=== PATIENT | male | born 1990 | race Hispanic/Latino ===

== ENCOUNTER 2023-11-17 16:21 | Emergency (ER) | payer OTHER ==
[~2023-11-17] VITALS: Ht 170.2 cm; Wt 88.5 kg
[2023-11-17] MEDS ORDERED: KETOROLAC 30MG VIAL (30MG/ML) IVP ONE (17:00)
[2023-11-17] MEDS ORDERED: FAMOTIDINE 20MG VIAL IV ONE (17:00)
[2023-11-17] MEDS ORDERED: METOCLOPRAMIDE 10 MG/2 ML VIAL IVP ONE (17:00)
[2023-11-17] MEDS ORDERED: LABETALOL 20MG VIAL IV ONE (17:00)
[2023-11-17 17:22] LABS: BASOPHILS # (AUTO) 0.17 K/uL (0.00-0.20); BASOPHILS % (AUTO) 2.7 % (0.0-5.0); EOSINOPHILS # (AUTO) 0.38 K/uL (0.00-0.70); HEMATOCRIT 48.2 % (42-54); IMMATURE GRANULOCYTE ABSOLUTE 0.02 K/uL (0-1); LYMPHOCYTES # (AUTO) 1.7 K/uL (1.0-4.8); LYMPHOCYTES % (AUTO) 26.7 % (21.0-51.0); MEAN CORPUSCULAR HEMOGLOBIN 30.7 pg (27.0-33.0); MEAN CORPUSCULAR HGB CONC 34.2 g/dL (32.0-36.0); MEAN CORPUSCULAR VOLUME 89.8 fL (79-99); MONOCYTES # (AUTO) 0.4 K/uL (0.1-1.0); MONOCYTES % (AUTO) 6.6 % (3.0-13.0); NEUTROPHILS # (AUTO) 3.7 K/uL (1.8-7.7); NEUTROPHILS % (AUTO) 57.7 % (40.0-77.0); PLATELET COUNT (AUTO) 310 K/uL (130-400); RED BLOOD CELL COUNT(AUTO) 5.37 MIL/uL (4.50-6.20); RED CELL DISTRIBUTION WIDTH 12.6 % (11.0-15.5); WHITE BLOOD COUNT (AUTO) 6.4 K/uL (4.8-10.8)
[2023-11-17 17:41] LABS: CREATININE 1.2 mg/dL (0.5-1.5); POTASSIUM 3.9 mmol/L (3.5-5.1)
[2023-11-17 17:54] LABS: MAGNESIUM 2.1 mg/dL (1.80-2.40); THYROID STIMULATING HORMONE 1.22 uIU/mL (0.36-3.74)
[2023-11-17 18:13] LABS: APPEARANCE,URINE TURBID (CLEAR); BILIRUBIN,URINE NEGATIVE (NEGATIVE); COLOR,URINE YELLOW (YELLOW); GLUCOSE, URINE (UA) NEGATIVE (NEGATIVE); KETONES,URINE NEGATIVE (NEGATIVE); LEUKOCYTE ESTERASE ,URINE NEGATIVE Leu/uL (NEGATIVE); NITRATE,URINE NEGATIVE (NEGATIVE); OCCULT BLOOD,URINE NEGATIVE (NEGATIVE); PROTEIN,URINE 10 mg/dL (NEGATIVE); UROBILINOGEN,URINE 0.2 mg/dL (0.2-1.0)
[2023-11-17 18:15] LABS: ADD UA MICROSCOPIC YES
[2023-11-17 18:37] LABS: BACTERIA,URINE RARE /HPF (None Seen); MUCUS,URINE RARE LPF (None Seen); WBC,URINE 0-1 /HPF (0-1)
[2023-11-17] MEDS ORDERED: HYDR-3420 PO (18:52)
[2023-11-17 19:04] VITALS: BP 133/86; PULSE 78; RESP 18; O2SAT 98
== END 2023-11-17 19:12 | disposition home or self-care (01) ==
LOC: EDH 16:21
DX: I16.1 Hypertensive emergency (principal); G44.209 Tension-type headache, unspecified, not intractable
CPT/HCPCS: 99285; 96374; 70450; 71045; 96375; 80061; 84443; 83735; 84484; 80048; 85025; 81001; 36415; 93005; J3490; J1885; J2765